=== PATIENT | female | born 1965 | race Caucasian/White ===

== ENCOUNTER → 2016-12-17 | Outpatient (CLI) | payer OTHER ==
[~2016-12-17] MED LIST: BACTRIM DS TAB1 EACH PO; FLEXERIL 10 MG10 MG PO; LORTAB 5-325 M1 EACH PO; ZANTAC150 MG PO; ZOFRAN4 MG PO
== END ==
LOC: KOH-I 09:27
DX: R19.00 Intra-abdominal and pelvic swelling, mass and lump, unspecified site (principal); R74.0 Nonspecific elevation of levels of transaminase and lactic acid dehydrogenase [LDH]; R59.0 Localized enlarged lymph nodes; Z90.49 Acquired absence of other specified parts of digestive tract; N28.1 Cyst of kidney, acquired
CPT/HCPCS: 76536; 76700